=== PATIENT | female | born 2000 | race Caucasian/White ===

== ENCOUNTER 2020-05-23 14:49 | Emergency (ER) | payer OTHER ==
[2020-05-23] MEDS ORDERED: ZOFRAN4 MG PO (17:22)
[2020-05-23] MEDS ORDERED: MACROBID 100 M100 MG PO (17:22)
[2020-05-23] MEDS ORDERED: PYRIDIUM200 MG PO (17:22)
== END 2020-05-23 17:54 | disposition home or self-care (01) ==
LOC: ER1 14:49
DX: N39.0 Urinary tract infection, site not specified (principal); R19.7 Diarrhea, unspecified; F41.9 Anxiety disorder, unspecified; F32.9 Major depressive disorder, single episode, unspecified; Z90.49 Acquired absence of other specified parts of digestive tract; Z79.899 Other long term (current) drug therapy; Z88.2 Allergy status to sulfonamides
CPT/HCPCS: 81001; 84703; 99284

== ENCOUNTER 2020-10-10 16:41 | Emergency (ER) | payer OTHER ==
[~2020-10-10 16:41] MED LIST: MACROBID 100 M100 MG PO; PYRIDIUM200 MG PO; ZOFRAN4 MG PO
[2020-10-10 20:48] LABS: HEMOGLOBIN 12.3 gm/dl (12.3-15.3); RED BLOOD COUNT 4.24 M/UL (4.00-5.10); WHITE BLOOD COUNT 8.2 K/UL (4.5-11.0)
[2020-10-10 21:16] LABS: BUN/CREATININE RATIO 13 (0-10)
[2020-10-14 07:10] LABS: APTT 23.4 sec (22.9-30.2)
== END 2020-10-10 21:25 | disposition short-term general hospital (02) ==
LOC: ER1 16:41
PROVIDERS: Family Medicine
DX: H54.40 Blindness, one eye, unspecified eye (principal); F17.210 Nicotine dependence, cigarettes, uncomplicated
CPT/HCPCS: 70450; 80053; 82962; 84703; 85025; 85610; 85652; 85730; 85732; 86140; 99284

== ENCOUNTER 2020-11-27 11:30 | Observation (INO) | payer OTHER ==
[~2020-11-27] VITALS: Ht 149.9 cm; Wt 54.4 kg
[2020-11-27 14:46] LABS: HEMOGLOBIN 13.5 gm/dl (12.3-15.3); RED BLOOD COUNT 4.49 M/UL (4.00-5.10); WHITE BLOOD COUNT 6.6 K/UL (4.5-11.0)
[2020-11-27 15:23] LABS: BUN/CREATININE RATIO 20 (0-10)
[2020-11-27] MEDS ORDERED: PROZAC40 MG PO (18:19)
[2020-11-27] MEDS ORDERED: LAMICTAL25 MG PO (18:19)
[2020-11-28 06:32] LABS: BUN/CREATININE RATIO 14 (0-10)
[2020-11-28 07:00] LABS: WHITE BLOOD COUNT 6.7 K/UL (4.5-11.0)
[2020-11-29] MEDS ORDERED: BUTALB-ACETAMI1 EAC1 PO (11:17)
[2020-11-29] MEDS ORDERED: TOPAMAX 25 MG T25 MG PO (11:17)
== END 2020-11-29 14:05 | disposition home or self-care (01) ==
LOC: ER1 11:30 → MED SURG 4 17:00 → CDU 17:00 → MED SURG 4 20:48
PROVIDERS: Emergency Medicine; Physician Assistant; ADMIT Internal Medicine
DX: G43.809 Other migraine, not intractable, without status migrainosus (principal); R94.31 Abnormal electrocardiogram [ECG] [EKG]; F41.9 Anxiety disorder, unspecified; F32.9 Major depressive disorder, single episode, unspecified; F39 Unspecified mood [affective] disorder; Z79.899 Other long term (current) drug therapy; Z88.1 Allergy status to other antibiotic agents; Z90.49 Acquired absence of other specified parts of digestive tract; Z90.89 Acquired absence of other organs; Z20.822 Contact with and (suspected) exposure to COVID-19
CPT/HCPCS: 36415; 70450; 70496; 70553; 71045; 80048; 80053; 82550; 82553; 83874; 84484; 84703; 85025; 85610; 85730; 93005; 96374; 96375; 96376; 99285; A9577; G0378; J2270; J2405; J7030; Q9967; U0002